=== PATIENT | female | born 1950 | race Caucasian/White ===

== ENCOUNTER 2019-05-10 17:35 | Observation (INO) | payer OTHER ==
[~2019-05-10] VITALS: Ht 157.5 cm; Wt 77.6 kg
[2019-05-10 17:41] VITALS: Ht 157.5 cm; Wt 77.6 kg
[2019-05-10 18:16] LABS: BASOPHIL % 0.3 % (0-2); PLATELET COUNT 315 x10^3mcL (130-400); RED CELL DISTRIBUTION WIDTH 13.4 % (11.5-14.5)
[2019-05-10 18:30] LABS: CALCIUM 9.8 mg/dL (8.5-10.1); CARBON DIOXIDE 26.4 mmol/L (21-32); CHLORIDE SERUM 106 mmol/L (98-107); CREATININE SERUM 0.9 mg/dL (0.6-1.0); GFR1 > 60 mL/min; GLUCOSE SERUM 91 mg/dL (74-106); POTASSIUM SERUM 3.2 mmol/L (3.5-5.1); SODIUM SERUM 142 mmol/L (136-145)
[2019-05-10 18:34] LABS: ALBUMIN 3.8 g/dL (3.4-5.0); ALKALINE PHOSPHATASE 73 U/L (46-116); ALT/SGPT 29 U/L (14-59); AST/SGOT 20 U/L (15-37); BILIRUBIN TOTAL 0.3 mg/dL (0.20-1.00); TOTAL PROTEIN, SERUM 7.6 g/dL (6.4-8.2)
[2019-05-10 21:32] VITALS: BP 151/55
[2019-05-11 05:44] VITALS: BP 142/73
[2019-05-11 05:52] LABS: BASOPHIL % 0.3 % (0-2); PLATELET COUNT 278 x10^3mcL (130-400); RED CELL DISTRIBUTION WIDTH 13.1 % (11.5-14.5)
[2019-05-11 06:23] LABS: ALBUMIN 3.5 g/dL (3.4-5.0); ALKALINE PHOSPHATASE 52 U/L (46-116); ALT/SGPT 27 U/L (14-59); AST/SGOT 20 U/L (15-37); BILIRUBIN TOTAL 0.3 mg/dL (0.20-1.00); CALCIUM 9.1 mg/dL (8.5-10.1); CARBON DIOXIDE 29.2 mmol/L (21-32); CHLORIDE SERUM 108 mmol/L (98-107); CREATININE SERUM 0.9 mg/dL (0.6-1.0); GFR1 > 60 mL/min; GLUCOSE SERUM 85 mg/dL (74-106); MAGNESIUM 1.9 mg/dL (1.8-2.4); POTASSIUM SERUM 3.7 mmol/L (3.5-5.1); SODIUM SERUM 143 mmol/L (136-145); TOTAL PROTEIN, SERUM 6.9 g/dL (6.4-8.2)
[2019-05-11 07:42] VITALS: BP 130/67
[2019-05-11] MEDS ORDERED: COZAAR50 M1 PO (11:58)
[2019-05-11] MEDS ORDERED: TRIGLIDE160 M1 PO (11:58)
[2019-05-11] MEDS ORDERED: TOPROL XL100 MG PO (11:59)
[2019-05-11] MEDS ORDERED: MICROZIDE12.5 MG PO (11:59)
[2019-05-11] MEDS ORDERED: ASPIRIN CHILDRE81 MG PO (12:00)
[2019-05-11] MEDS ORDERED: FOLIC ACID0.8 MG PO (12:00)
[2019-05-11] MEDS ORDERED: MASON NATURAL1000 IU PO (12:01)
[2019-05-11 12:08] VITALS: BP 134/74
[2019-05-11] MEDS ORDERED: LOP50 PO (13:17)
[2019-05-11 15:33] VITALS: BP 134/74
[2019-05-11 16:04] VITALS: BP 124/56
== END 2019-05-11 17:41 | disposition home or self-care (01) ==
LOC: ED 17:35 → DU 20:25
PROVIDERS: Emergency Medicine; ADMIT Internal Medicine Pulmonary Disease
DX: G45.9 Transient cerebral ischemic attack, unspecified (principal); I65.29 Occlusion and stenosis of unspecified carotid artery; I10 Essential (primary) hypertension; E78.5 Hyperlipidemia, unspecified; E55.9 Vitamin D deficiency, unspecified; E87.5 Hyperkalemia
CPT/HCPCS: 97116-GP; G0378; J7120; Q0092